=== PATIENT | male | born 1985 | race Caucasian/White ===

== ENCOUNTER 2022-10-22 18:49 | Emergency (ER) | payer OTHER ==
[2022-10-22 19:12] VITALS: BP 141/87; PULSE 78
[2022-10-22] MEDS ORDERED: Cyclobenzaprine 10 MG Tab PO ONE (20:23)
== END 2022-10-22 23:10 | disposition home or self-care (01) ==
LOC: JD.ED 18:49
DX: S39.012A Strain of muscle, fascia and tendon of lower back, initial encounter (principal); W00.0XXA Fall on same level due to ice and snow, initial encounter; Z91.030 Bee allergy status
CPT/HCPCS: 72128; 72131; 99283; A9270